=== PATIENT | male | born 1955 | race Caucasian/White ===

== ENCOUNTER 2017-12-02 14:41 | Emergency (ER) | payer BC, OTHER ==
[2017-12-02 15:22] VITALS: BP 197/96
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
--- NOTE | 2017-12-02 16:16 | RAD ---
INDICATION: Right shoulder pain after lifting COMPARISON: None TECHNIQUE: Routine frontal, Y and axial views were obtained. FINDINGS: There is moderate a.c. and glenohumeral osteoarthritis. There are no acute bony findings. The soft tissues are normal. IMPRESSION: MODERATE A.C. AND GLENOHUMERAL OSTEOARTHRITIS.
== END 2017-12-02 16:40 | disposition home or self-care (01) ==
LOC: UCCORT 14:41
DX: M19.011 Primary osteoarthritis, right shoulder (principal); M75.91 Shoulder lesion, unspecified, right shoulder
CPT/HCPCS: 99211; G0463